=== PATIENT | female | born 2000 | race American Indian/Alaskan Native ===

== ENCOUNTER 2019-07-22 16:04 | Emergency (ER) | payer OTHER ==
[~2019-07-22] VITALS: Ht 160 cm; Wt 98.4 kg
== END 2019-07-22 16:57 | disposition home or self-care (01) ==
LOC: ED 16:04
DX: S90.31XA Contusion of right foot, initial encounter (principal); W01.118A Fall on same level from slipping, tripping and stumbling with subsequent striking against other sharp object, initial encounter; Z88.2 Allergy status to sulfonamides; Z88.1 Allergy status to other antibiotic agents
CPT/HCPCS: 73630; 99283

== ENCOUNTER 2024-01-22 00:03 | Inpatient (IN) | payer OTHER ==
[~2024-01-22] VITALS: Ht 161.3 cm; Wt 118.4 kg
[~2024-01-22 00:03] MED LIST: CALCIUM CARBONATE 500 MG CHEW PO PRN; LACTATED RINGER'S 1,000 ML IV SCH; MAGNESIUM HYDROXIDE/AL HYDROX 30 ML CUP PO PRN; miSOPROStoL 25 MCG TAB PV SCH
[2024-01-22] MEDS ORDERED: PENICILLIN G POTASSIUM 5 MUNITS/110 ML PIGGYBACK IV ONE ×2 (00:15→04:45)
[2024-01-22] MEDS ORDERED: LIDOCAINE 2% VISCOUS 6 ML SYR TOP ONE ×2 (00:15)
[2024-01-22] MEDS ORDERED: OXYTOCIN/DEXTROSE 5% 20 UNITS/100 ML BAG IV SCH (00:15)
[2024-01-22 00:39] LABS: AMPHETAMINES, URINE NEGATIVE (NEGATIVE); BARBITURATES, URINE NEGATIVE (NEGATIVE); BENZODIAZEPINE, URINE NEGATIVE (NEGATIVE); BUPRENORPHINE, URINE NEGATIVE (NEGATIVE); CANNABINOID, URINE POSITIVE (NEGATIVE); COCAINE, URINE NEGATIVE (NEGATIVE); ECSTASY, URINE NEGATIVE (NEGATIVE); FENTANYL, URINE NEGATIVE (NEGATIVE); METHADONE, URINE NEGATIVE (NEGATIVE); OPIATES, URINE NEGATIVE (NEGATIVE); OXYCODONE, URINE NEGATIVE (NEGATIVE); PHENCYCLIDINE, URINE NEGATIVE (NEGATIVE)
[2024-01-22 00:55] LABS: ABO A; RH POSITIVE
[2024-01-22 01:22] VITALS: BP 131/73
[2024-01-22 04:29] LABS: HEMATOCRIT 33.4 % (35.0-50.0); HEMOGLOBIN 10.7 g/dL (12.0-18.0); MCH 26.4 (27-36); MCV 82.6 fl (81-99); RBC 4.04 M/ul (4.3-5.7); RDW 14.4 (10.5-15.0)
[2024-01-22 04:32] LABS: ANTIBODY SCREEN NEGATIVE
[2024-01-22] MEDS ORDERED: OXYTOCIN/DEXTROSE 5% 20 UNITS/100 ML BAG ONE (05:11)
[2024-01-22] MEDS ORDERED: ROPIVACAINE 0.2% 200 ML BAG ONE (05:59)
[2024-01-22] MEDS ORDERED: fentaNYL citrate 100 MCG/2 ML VIAL ONE (06:00)
[2024-01-22] MEDS ORDERED: ROPIVACAINE 0.2% 200 ML BAG EPIDURAL SCH (06:30)
[2024-01-22] MEDS ORDERED: ePHEDrine sulfate 5 MG/ML SYRINGE IV PRN (06:30)
[2024-01-22] MEDS ORDERED: LACTATED RINGER'S 2,000 ML IV ONE (06:30)
[2024-01-22] MEDS ORDERED: LACTATED RINGER'S 500 ML IV PRN (06:30)
[2024-01-22] MEDS ORDERED: PENICILLIN G POTASSIUM 5 MUNITS/110 ML PIGGYBACK IV SCH (09:00)
[2024-01-22] MEDS ORDERED: PENICILLIN G POTASSIUM 2.5 MUNITS in DEXTROSE 5% 100 ML IV SCH (09:00)
[2024-01-22] MEDS ORDERED: OXYTOCIN/0.9 % SODIUM CHLORIDE 500 ML IV SCH ×2 (12:15→19:15)
[2024-01-22] MEDS ORDERED: ACETAMINOPHEN 500 MG TAB PO ONE (12:30)
--- NOTE | 2024-01-22 16:24 | PR ---
[facility] [address] [place], [place] [address] Signed Progress Notes IP Datetime Report Generated by CPN: 01/22/2024 16:24 PROGRESS NOTES: [id number] Impression: Normal Progression of Labor Procedures: Scalp Electrode Plan: Continue Present Management Informed Consent Obtain: Vaginal Delivery VITAL SIGNS: [id number] Vital Signs: Reviewed; Within Normal Limits EXAM: [id number] Dilatation: 9.0 Effacement: 90 Station: -1 MEMBRANES: [id number] Pooling: Negative Amniotic Fluid Color: Clear Comments: S: Patient doing well. No concerns or complaints. resting comfortably in bed. Epidural in place. O: AFVSS SVE: 9/C/-1 A/P: Patient progressing well. FSE replaced. Anticipate . Pt to sit in high swartz's position. Recheck in 1 hour and sooner as needed. FETUS A: [id number] FHR Baseline: 130 Variability: Moderate 6-25bpm Accelerations: 15X15 FHR Category: Category I Presentation: Vertex Comments on Fetus A: No sign of metabolic acidosis FETUS B: [id number] Signing Physician: Jennifer Christensen MD Copies: ~ *Electronically Signed* 01/22/24 1624 JENNIFER CHRISTENSEN MD PATIENT NAME: MANAS ROMERO PROGRESS NOTE DATE OF : 89 PHYSICIAN: JENNIFER CHRISTENSEN MD RPT #: [id number] REPORT IS CONFIDENTIAL AND NOT TO BE RELEASED WITHOUT AUTHORIZATION
--- NOTE | 2024-01-22 17:29 | PR ---
[facility] [address] [place], [place] [address] Signed Progress Notes IP Datetime Report Generated by CHIP: 01/22/2024 17:29 PROGRESS NOTES: [id number] Impression: Normal Progression of Labor Procedures: Scalp Electrode Plan: Continue Present Management Informed Consent Obtain: Vaginal Delivery VITAL SIGNS: [id number] Vital Signs: Reviewed; Within Normal Limits EXAM: [id number] Dilatation: 10.0 Effacement: 90 Station: 1 MEMBRANES: [id number] Pooling: Negative Membranes Status: Ruptured Amniotic Fluid Color: Clear Comments: S: Patient doing well. No concerns or complaints. resting comfortably in bed. Epidural in place. O: AFVSS SVE: 9/C/-1 A/P: Patient progressing well. FSE replaced. Anticipate . Pt to sit in high swartz's position. Recheck in 1 hour and sooner as needed. FETUS A: [id number] FHR Baseline: 130 Variability: Minimal - >Undetectable to <=5bpm Accelerations: 15X15 Decelerations: None FHR Category: Category II Presentation: Vertex Comments on Fetus A: No sign of metabolic acidosis FETUS B: [id number] Signing Physician: Jennifer Christensen MD *Electronically Signed* 01/22/24 3885 JENNIFER CHRISTENSEN MD PATIENT NAME: MANAS ROMERO PROGRESS NOTE DATE OF : 98 PHYSICIAN: JENNIFER CHRISTENSEN MD RPT #: [id number] REPORT IS CONFIDENTIAL AND NOT TO BE RELEASED WITHOUT AUTHORIZATION
[2024-01-22] MEDS ORDERED: CALCIUM CARBONATE 500 MG CHEW PO PRN (19:15)
[2024-01-22] MEDS ORDERED: BENZOCAINE/LANOLIN/ALOE VERA 60 ML AEROSOL TOP PRN (19:15)
[2024-01-22] MEDS ORDERED: MAGNESIUM HYDROXIDE/AL HYDROX 30 ML CUP PO PRN (19:15)
[2024-01-22] MEDS ORDERED: HYDROCORTISONE ACETATE 25 MG SUPP PR PRN (19:15)
[2024-01-22] MEDS ORDERED: HYDROCODONE/ACETA 5/325 TAB PO PRN (19:15)
[2024-01-22] MEDS ORDERED: ACETAMINOPHEN 325 MG TAB PO PRN (19:15)
[2024-01-22] MEDS ORDERED: IBUPROFEN 600 MG TAB PO PRN (19:15)
[2024-01-22] MEDS ORDERED: WITCH HAZEL/GLYCERIN 1 EA PAD TOP PRN (19:15)
[2024-01-22] MEDS ORDERED: MAGNESIUM HYDROXIDE 30 ML UDC PO PRN (19:15)
[2024-01-22] MEDS ORDERED: OXYCODONE HCL 5 MG TAB PO PRN (19:15)
[2024-01-22] MEDS ORDERED: SENNOSIDES/DOCUSATE 1 EA TAB PO SCH (21:00)
[2024-01-23 05:36] LABS: HEMATOCRIT 29.4 % (35.0-50.0); HEMOGLOBIN 9.8 g/dL (12.0-18.0); MCH 27.2 (27-36); MCHC 33.4 g/dl (30-36); MCV 81.5 fl (81-99); RBC 3.61 M/ul (4.3-5.7); RDW 14.7 (10.5-15.0)
--- NOTE | 2024-01-23 10:03 | PR ---
[facility] [address] [place], [place] [address] Signed PP Progress Notes Datetime Report Generated by CPN: 01/23/2024 10:03 SUBJECTIVE: [id number] Pain: Within Normal Limits Nausea/Vomiting: Denies Flatus: Yes Bowel Movement: No Vital Signs: [id number] Vital Signs: Reviewed; Within Normal Limits Cardiovascular: Not Done Respiratory: Not Done Abdomen/Uterus: Normal Lochia: Normal Vulva/Perineum: Not Done Breasts: Not Done CVA Tenderness: Not Done Extremities: Normal Incision: Not Applicable Progress: Normal IMPRESSION/PLAN/PROCEDURES: [id number] Impression: Normal Progression Plan: Continue Present Management Procedures: None Progress Notes: S: 24 yo s/p vaginal delivery. PPD #1. Doing well. Denies CARPIO, CP, SOB, F/C, N/V, RUQ pain, changes in vision, vaginal discharge. Tolerating regular diet, ambulating, voiding on own, pain controlled, positive flatus. O: AFVSS Abd: Soft. Non-tender to palpation. Fundus firm, 1 finger breadth below umbilicus. Musc: MORRELL. No C/C/E. A/P: Patient doing well. Will continue management. Likely discharge home tomorrow AM. Elevated WBC. Repeat WBC in AM. Likely secondary to delivery. Signing Physician: Roxana Cee MD *Electronically Signed* 01/23/24 1003 ROXANA CEE MD PATIENT NAME: FREDERICK ROMERON BOONE PROGRESS NOTE DATE OF : 98 PHYSICIAN: ROXANA CEE MD RPT #: [id number] REPORT IS CONFIDENTIAL AND NOT TO BE RELEASED WITHOUT AUTHORIZATION
[2024-01-24 05:54] LABS: HEMATOCRIT 29.5 % (35.0-50.0); HEMOGLOBIN 9.5 g/dL (12.0-18.0); MCH 26.7 (27-36); MCHC 32.3 g/dl (30-36); MCV 82.8 fl (81-99); RBC 3.57 M/ul (4.3-5.7); RDW 14.7 (10.5-15.0)
--- NOTE | 2024-01-24 10:10 | PR ---
[facility] [address] [place], [place] [address] Signed PP Progress Notes Datetime Report Generated by CPN: 01/24/2024 10:10 SUBJECTIVE: [id number] Pain: Within Normal Limits Nausea/Vomiting: Denies Flatus: Yes Bowel Movement: No Vital Signs: [id number] Vital Signs: Reviewed; Within Normal Limits Cardiovascular: Not Done Respiratory: Not Done Abdomen/Uterus: Normal Lochia: Normal Vulva/Perineum: Not Done Breasts: Not Done CVA Tenderness: Not Done Extremities: Normal Incision: Not Applicable Progress: Normal IMPRESSION/PLAN/PROCEDURES: [id number] Impression: Normal Progression Plan: Discharge Procedures: None Progress Notes: S: 24 yo s/p vaginal delivery. PPD #2. Doing well. Denies CARPIO, CP, SOB, F/C, N/V, RUQ pain, changes in vision, vaginal discharge. Tolerating regular diet, ambulating, voiding on own, +flatus, pain controlled. O: AFVSS Abd: Soft, non-tender. Fundus firm and below umbilicus. Musc: MORRELL. A/P: 24 yo s/p vaginal delivery. PPD #2. Doing well. Patient is meeting all hospital milestones. Will discharge home today. Signing Physician: Jennifer Cee MD *Electronically Signed* 01/24/24 1010 JENNIFER CEE MD PATIENT NAME: MANAS ROMERO PROGRESS NOTE DATE OF : 98 PHYSICIAN: JENNIFER CEE MD RPT #: [id number] REPORT IS CONFIDENTIAL AND NOT TO BE RELEASED WITHOUT AUTHORIZATION
--- NOTE | 2024-01-24 11:20 | NUR ---
VISIT PT DURING ROUNDING. DETAIL NOTE ENTERED INTO [facility] CHARTING SYSTEM.
== END 2024-01-24 13:25 | disposition home or self-care (01) | DRG 807 ==
LOC: FBC 00:03
PROVIDERS: ADMIT Obstetrics & Gynecology; ATTEND Obstetrics & Gynecology
PROC: 10E0XZZ Delivery of Products of Conception, External Approach (ICD-10-PCS; principal; 2024-01-22)
PROC: 3E0R3BZ Introduction of Anesthetic Agent into Spinal Canal, Percutaneous Approach (ICD-10-PCS; 2024-01-22)
PROC: 00HU33Z Insertion of Infusion Device into Spinal Canal, Percutaneous Approach (ICD-10-PCS; 2024-01-22)
PROC: 10907ZC Drainage of Amniotic Fluid, Therapeutic from Products of Conception, Via Natural or Artificial Opening (ICD-10-PCS; 2024-01-22)
PROC: 0UQMXZZ Repair Vulva, External Approach (ICD-10-PCS; 2024-01-22)
DX: O48.0 Post-term pregnancy (principal); Z37.0 Single live birth; O99.824 Streptococcus B carrier state complicating childbirth; Z3A.40 40 weeks gestation of pregnancy; O71.82 Other specified trauma to perineum and vulva; O70.0 First degree perineal laceration during delivery
CPT/HCPCS: 01960; 36415; 80307; 85027; 86850; 86900; 86901; A9270; J2540; J2590; J2795; J3010

== ENCOUNTER 2025-04-03 09:07 | Emergency (ER) | payer OTHER ==
[~2025-04-03] VITALS: Ht 152.4 cm; Wt 114.6 kg
[2025-04-03] MEDS ORDERED: AMOX TR-K CLV1 EAC1 PO (09:30)
[2025-04-03 09:34] VITALS: BP 153/70
== END 2025-04-03 09:34 | disposition home or self-care (01) ==
LOC: ED 09:07
DX: S61.256A Open bite of right little finger without damage to nail, initial encounter (principal); Z87.891 Personal history of nicotine dependence; Z88.2 Allergy status to sulfonamides
CPT/HCPCS: 99283